=== PATIENT | male | born 1940 | race Hispanic/Latino ===

== ENCOUNTER 2017-01-25 01:46 | Emergency (ER) | payer MEDICARE ==
[2017-01-25 03:34] VITALS: BP 148/72
--- NOTE | 2017-01-25 03:43 | Cat Scan Report ---
FINAL REPORT PROCEDURE: CT HEAD/BRAIN WO CON TECHNIQUE: Computerized tomography of the head was performed without contrast material. HISTORY: head injury COMPARISON: 01/19/2017 FINDINGS: Skull and scalp: Normal. Paranasal sinuses: Normal. Ventricles and subarachnoid spaces: Normal. Cerebrum: No evidence of hemorrhage, acute infarction or mass. There is moderate atrophy and mild periventricular deep white matter change.. Cerebellum and brainstem: No evidence of hemorrhage, acute infarction or mass. Vasculature: Normal. Comments: None. IMPRESSION: There is no evidence of an acute intracranial process. Atrophy and periventricular deep white matter changes again noted and not changed since prior study.
--- NOTE | 2017-01-25 03:48 | Emergency Department Report ---
ED Fall HPI - General Chief Complaint: Fall Stated Complaint: FALL Time Seen by Provider: 01/25/17 02:07 Source: EMS Mode of arrival: Stretcher Limitations: Physical Limitation - History of Present Illness Initial Comments: 76-year-old male presents to the emergency department via EMS from a local nursing facility after a fall. Per report, the patient fell out of bed, striking his head. There was no reported loss of consciousness. Per report, patient is nonverbal at baseline. There are no other complaints. MD Complaint: fall -: Sudden, This evening Fall From: out of bed When Fall Occurred: just prior to arrival Fall Witnessed: no Place Fall Occurred: [facility] Loss of Consciousness: none Prolonged Down Time?: no Symptoms Prior to Fall: none Location: head - Related Data Home Medications Medication Instructions Recorded Confirmed Last Taken Acetaminophen [Tylenol] 650 mg PO Q6HR PRN 07/25/16 01/19/17 Unknown Aspirin EC [Aspirin Enteric Coated 81 mg PO QDAY 07/25/16 01/19/17 07/24/16 TAB] Cyclobenzaprine HCl [Flexeril 5 MG 5 mg PO TID PRN 07/25/16 01/19/17 Unknown TAB] Gabapentin [Neurontin] 300 mg PO Q8HR 07/25/16 01/19/17 07/24/16 Ibuprofen [Motrin] 800 mg PO Q8HR PRN 07/25/16 01/19/17 Unknown Lisinopril [Zestril TAB] 3 tab PO QDAY 07/25/16 01/19/17 07/24/16 Meclizine [Antivert] 25 mg PO BID PRN 07/25/16 01/19/17 Unknown Ondansetron [Zofran TAB] 8 mg PO Q4H PRN 07/25/16 01/19/17 Unknown Sennosides/Docusate Sodium 1 each PO BID PRN 07/25/16 01/19/17 Unknown [Senexon-S Tablet] traMADol [Ultram] 50 mg PO Q8HR 07/25/16 01/19/17 07/24/16 Furosemide [Lasix] 20 mg PO QDAY 01/19/17 01/19/17 Unknown Haloperidol [Haldol] 1 mg PO Q4H PRN 01/19/17 01/19/17 Unknown ISOSORBIDE MONOnitrate [Imdur ER] 30 mg PO DAILY 01/19/17 01/19/17 Unknown Ipratropium/Albuterol Sulfate 1 ampul IH Q6HR 01/19/17 01/19/17 Unknown [Duoneb 0.5 mg-3 mg/3 ml Soln] Omeprazole Magnesium [PriLOSEC Otc] 20 mg PO QDAY 01/19/17 01/19/17 Unknown levETIRAcetam [Keppra TAB] 250 mg PO BID 01/19/17 01/19/17 Unknown Previous Rx's Medication Instructions Recorded Last Taken Type Ferrous Sulfate [Feosol 325 MG tab] 325 mg PO QDAY #30 tablet 06/21/14 07/24/16 Rx Levothyroxine [Synthroid] 50 mcg PO QAM #30 tablet 06/21/14 07/24/16 Rx Allergies Allergy/AdvReac Type Severity Reaction Status Date / Time No Known Allergies Allergy Verified 06/13/14 03:27 ED Review of Systems ROS: Stated complaint: FALL Other details as noted in HPI Comment: Unobtainable due to pts medical conditions ED Past Medical Hx - Past Medical History Previous Medical History?: Yes Hx Hypertension: Yes Hx CVA: Yes Hx Heart Attack/AMI: Yes Hx Congestive Heart Failure: Yes Hx Deep Vein Thrombosis: No Hx Pulmonary Embolism: No Hx Liver Disease: No Hx Renal Disease: Yes (chronic Cr 1.7) Hx Sickle Cell Disease: No Hx Seizures: No Hx Kidney Stones: No Hx Psychiatric Treatment: No Hx COPD: Yes Hx Tuberculosis: No Additional medical history: hypothyroidism. afib - Surgical History Hx Coronary Stent: Yes (x2) Hx Pacemaker: No Hx Internal Defibrillator: No - Family History Family history: no significant - Social History Smoking Status: Unknown if ever smoked Substance Use Type: None - Medications Home Medications: Home Medications Medication Instructions Recorded Confirmed Last Taken Type Ferrous Sulfate [Feosol 325 MG tab] 325 mg PO QDAY #30 tablet 06/21/14 01/19/17 07/24/16 Rx Levothyroxine [Synthroid] 50 mcg PO QAM #30 tablet 06/21/14 01/19/17 07/24/16 Rx Acetaminophen [Tylenol] 650 mg PO Q6HR PRN 07/25/16 01/19/17 Unknown History Aspirin EC [Aspirin Enteric Coated 81 mg PO QDAY 07/25/16 01/19/17 07/24/16 History TAB] Cyclobenzaprine HCl [Flexeril 5 MG 5 mg PO TID PRN 07/25/16 01/19/17 Unknown History TAB] Gabapentin [Neurontin] 300 mg PO Q8HR 07/25/16 01/19/17 07/24/16 History Ibuprofen [Motrin] 800 mg PO Q8HR PRN 07/25/16 01/19/17 Unknown History Lisinopril [Zestril TAB] 3 tab PO QDAY 07/25/16 01/19/17 07/24/16 History Meclizine [Antivert] 25 mg PO BID PRN 07/25/16 01/19/17 Unknown History Ondansetron [Zofran TAB] 8 mg PO Q4H PRN 07/25/16 01/19/17 Unknown History Sennosides/Docusate Sodium 1 each PO BID PRN 07/25/16 01/19/17 Unknown History [Senexon-S Tablet] traMADol [Ultram] 50 mg PO Q8HR 07/25/16 01/19/17 07/24/16 History Furosemide [Lasix] 20 mg PO QDAY 01/19/17 01/19/17 Unknown History Haloperidol [Haldol] 1 mg PO Q4H PRN 01/19/17 01/19/17 Unknown History ISOSORBIDE MONOnitrate [Imdur ER] 30 mg PO DAILY 01/19/17 01/19/17 Unknown History Ipratropium/Albuterol Sulfate 1 ampul IH Q6HR 01/19/17 01/19/17 Unknown History [Duoneb 0.5 mg-3 mg/3 ml Soln] Omeprazole Magnesium [PriLOSEC Otc] 20 mg PO QDAY 01/19/17 01/19/17 Unknown History levETIRAcetam [Keppra TAB] 250 mg PO BID 01/19/17 01/19/17 Unknown History ED Physical Exam - General Limitations: Physical Limitation General appearance: alert, in no apparent distress - Head Head exam: Present: normocephalic, other (abrasion noted to the midline forehead. There is also a small skin tear on the parietal midline scalp.) - Eye Eye exam: Present: normal appearance, PERRL, EOMI - ENT ENT exam: Present: normal exam, normal orophraynx, mucous membranes moist - Neck Neck exam: Present: normal inspection, full ROM. Absent: tenderness - Respiratory Respiratory exam: Present: normal lung sounds bilaterally. Absent: respiratory distress - Cardiovascular Cardiovascular Exam: Present: regular rate, normal rhythm, normal heart sounds - GI/Abdominal GI/Abdominal exam: Present: soft, normal bowel sounds. Absent: distended, tenderness - Extremities Exam Extremities exam: Present: full ROM. Absent: tenderness - Back Exam Back exam: Present: normal inspection, full ROM. Absent: tenderness - Neurological Exam Neurological exam: Present: alert. Absent: motor sensory deficit - Skin Skin exam: Present: warm, dry, ecchymosis (multiple ecchymoses noted on the bilateral upper extremities in varying stages of healing.) ED Course Vital Signs 01/25/17 01/25/17 01/25/17 02:04 02:06 02:10 Temperature Pulse Rate 49 L 87 78 Respiratory 12 13 15 Rate Blood Pressure 167/71 167/71 O2 Sat by Pulse Oximetry 01/25/17 01/25/17 01/25/17 02:16 02:20 02:23 Temperature 97.6 F Pulse Rate 74 75 75 Respiratory 14 12 14 Rate Blood Pressure 170/60 170/60 167/71 O2 Sat by Pulse 100 100 Oximetry 01/25/17 01/25/17 01/25/17 02:26 02:30 02:36 Temperature Pulse Rate 71 75 75 Respiratory 13 14 15 Rate Blood Pressure 170/60 150/68 150/68 O2 Sat by Pulse 100 Oximetry 01/25/17 01/25/17 01/25/17 02:40 02:45 02:50 Temperature Pulse Rate 75 74 71 Respiratory 13 14 16 Rate Blood Pressure 150/68 153/68 153/68 O2 Sat by Pulse 100 99 100 Oximetry 01/25/17 01/25/17 01/25/17 02:56 03:00 03:06 Temperature Pulse Rate 68 77 77 Respiratory 12 16 15 Rate Blood Pressure 153/68 148/72 148/72 O2 Sat by Pulse 100 100 100 Oximetry 01/25/17 03:10 Temperature Pulse Rate 69 Respiratory 13 Rate Blood Pressure 148/72 O2 Sat by Pulse 100 Oximetry ED Medical Decision Making - Radiology Data Radiology results: report reviewed, image reviewed CT of the head shows no acute intracranial process. - Medical Decision Making Imaging results reviewed. Patient's wounds will be cleaned. Wounds are not amenable to sutures. Patient will be discharged back to the nursing facility at this time. - Differential Diagnosis fall, SDH, abrasion Critical care attestation.: If time is entered above; I have spent that time in minutes in the direct care of this critically ill patient, excluding procedure time. ED Disposition Clinical Impression: Fall Qualifiers: Encounter type: initial encounter Qualified Code(s): W19.XXXA - Unspecified fall, initial encounter Forehead abrasion Qualifiers: Encounter type: initial encounter Qualified Code(s): S00.81XA - Abrasion of other part of head, initial encounter Scalp abrasion Qualifiers: Encounter type: initial encounter Qualified Code(s): S00.01XA - Abrasion of scalp, initial encounter Disposition: DC/TX ANOTHER TYPE HEALTHCARE Is pt being admited?: No Condition: Stable Instructions: Abrasion (ED), Fall Prevention for Older Adults (ED) Referrals: PRIMARY CARE, [Primary Care Provider] - 3-5 Days Time of Disposition: 03:52
[2017-01-25] MEDS ORDERED: TRIPLE ANTIBIOTIC TP ONE (04:04)
== END 2017-01-25 04:19 | disposition other institution (70) ==
LOC: ED 01:46
DX: S00.81XA Abrasion of other part of head, initial encounter (principal); S00.01XA Abrasion of scalp, initial encounter; I12.9 Hypertensive chronic kidney disease with stage 1 through stage 4 chronic kidney disease, or unspecified chronic kidney disease; N18.9 Chronic kidney disease, unspecified; I25.2 Old myocardial infarction; I50.9 Heart failure, unspecified; J44.9 Chronic obstructive pulmonary disease, unspecified; E03.9 Hypothyroidism, unspecified; Z86.73 Personal history of transient ischemic attack (TIA), and cerebral infarction without residual deficits; Z79.82 Long term (current) use of aspirin; W06.XXXA Fall from bed, initial encounter; Y93.89 Activity, other specified; Y99.8 Other external cause status; Y92.129 Unspecified place in nursing home as the place of occurrence of the external cause
CPT/HCPCS: 70450; A6250